=== PATIENT | male | born 1950 | race Caucasian/White ===

== ENCOUNTER 2020-04-13 07:58 | Outpatient (CLI) | payer BC, SELFPAY ==
[2020-04-13 09:09] LABS: Basophils Absolute Auto 0.1 K/mm3 (0.0-0.1); Basophils Percent Auto 1.3 % (0.2-1.2); Eosinophils Absolute Auto 0.1 K/mm3 (0-0.3); Eosinophils Percent Auto 2.2 % (0-4.4); Hematocrit 44.5 % (42.0-52.0); Hemoglobin 16.1 g/dL (14.0-18.0); Immature Granulocyte Absolute 0.02 K/mm3 (0.00-0.031); Immature Granulocyte Percent A 0.4 % (0-0.5); Lymphocytes Absolute Auto 1.67 K/mm3 (0.9-3.2); Lymphocytes Percent Auto 30.5 % (18.3-44.2); Mean Corpuscular HGB Conc 36.2 g/dl (32-36); Mean Corpuscular Volume 91.2 fl (80-100); Mean Platelet Volume 10.6 fl (7.4-10.4); Monocytes Absolute Auto 0.6 K/mm3 (0.1-0.6); Monocytes Percent Auto 10.8 % (2.6-8.5); Neutrophils Percent Auto 54.8 % (45.5-73.1); Platelet Count Result 153 k/mm3 (150-375); Red Blood Count 4.88 M/mm3 (4.6-6.20); Red Cell Distribution Width 12.5 % (11.5-14.5); White Blood Count 5.5 K/mm3 (4.5-10.0)
[2020-04-13 09:17] LABS: Urine Cotinine NEGATIVE
[2020-04-13 09:18] LABS: Hemoglobin A1C 5.3 % (<5.7)
[2020-04-13 09:19] LABS: Albumin Level 4.6 g/dL (3.5-5.1); Estimated Glomerular Filt Rate 60; Glucose 96 mg/dL (75-110)
== END 2020-04-13 07:59 | disposition home or self-care (01) ==
LOC: ANHSURGERY 08:00
PROVIDERS: PCP Internal Medicine; Visit Provider Orthopaedic Surgery
DX: M15.9 Polyosteoarthritis, unspecified (principal)
CPT/HCPCS: 36415; 80307; 82040; 82565; 82947; 83036; 85025; 87081

== ENCOUNTER 2020-05-02 01:18 | Outpatient (CLI) | payer BC, SELFPAY ==
[2020-05-02 18:09] LABS: SARS-CoV-2 RNA PCR Negative
== END 2020-05-02 01:19 | disposition home or self-care (01) ==
LOC: ANHCOVIDDT 01:18
PROVIDERS: PCP Internal Medicine; Visit Provider Orthopaedic Surgery
DX: Z01.818 Encounter for other preprocedural examination (principal); Z11.59 Encounter for screening for other viral diseases
CPT/HCPCS: 87635; C9803; U0003

== ENCOUNTER 2020-05-05 11:18 | Inpatient (IN) | payer BC, MEDICARE, SELFPAY ==
[2020-04-13 08:19] VITALS: BP 138/82; PULSE 76; RESP 20; TEMP 37.2; O2SAT 98; BMI 34.9
[2020-05-05] VITALS (11 sets, daily range): BP systolic 99–137; BP diastolic 42–104; PULSE 12–79; RESP 12–99; TEMP 36.3–36.8; O2SAT 74–100; BMI 35.2
--- NOTE | ~2020-05-05 | XR_ITS ---
EXAMINATION: XR knee LT 2V DATE: 05/05/2020 10:44 CDT INDICATION: Left total knee arthroplasty TECHNIQUE: 2 views left knee FINDINGS: There is a left total knee arthroplasty in expected position. Subcutaneous gas with fluid and air in the joint are consistent with recent surgery. No evidence of periprosthetic fracture. IMPRESSION: 1. Recent left total knee arthroplasty. Reviewed, dictated and finalized at location B.
[2020-05-05] MEDS: ACETAMINOPHEN 500 MG TABLET 1000 MG PO (07:06)
[2020-05-05] MEDS: LACTATED RINGERS 1,000 ML 30 ML IV CONT ×2 (07:14→10:25)
--- NOTE | 2020-05-05 07:23 | WPDANESEPPF ---
Anes - Initial Pre Proc Eval Procedure: Operation Date: 05/05/20 08:30 Proposed Procedures p Left Total Knee Arthroplasty - Sina Guerra MD Date/Time: 05/05/20 07:23 Surgeon: Sina Guerra MD Pre Op Diagnosis: LEFT KNEE OA Patient Data Age: 70 Gender: M Height: 5 ft 6 in Weight: 99.1 kg Last Vital Signs Temp 37.2 C 04/13/20 08:19 Pulse 76 04/13/20 08:19 Resp 20 04/13/20 08:19 BP 138/82 04/13/20 08:19 Pulse Ox 98 04/13/20 08:19 Allergies Allergy/AdvReac Type Severity Reaction Status Date / Time No Known Allergies Allergy Unverified 05/05/20 06:40 Home Medications Medication Instructions Recorded Confirmed Type Xarelto 20 mg PO DAILY 09/25/19 05/05/20 History mecobalamin (vitamin B12) 1,000 mcg SUBLINGUAL DAILY 09/25/19 05/05/20 History folic acid 1 mg tablet 1 mg PO DAILY #90 tablet 10/21/19 05/05/20 Rx amlodipine 10 mg tablet 10 mg PO DAILY #90 tablet 11/18/19 05/05/20 Rx diphenhydramine-acetaminophen 2 tablet PO HS PRN 04/13/20 04/13/20 History [Tylenol PM Extra Strength] meloxicam [Mobic] 7.5 mg PO DAILY 04/13/20 05/05/20 History Patient hx anesthesia problems: none Family hx anesthesia problems: none PMFSH Past Medical History Medical History (Updated 04/13/20 @ 10:23 by Sina Guerra MD) A-fib Aftercare following surgery (10/29/19) Anticoagulant long-term use Atrial fibrillation stopped on 10/25 Benign essential hypertension BMI 34.0-34.9,adult Cataracts, bilateral DJD (degenerative joint disease), multiple sites Elevated homocysteine Encounter for preventive health examination Encounter for special screening examination for neoplasm of prostate Hearing loss Hypertension Impingement syndrome of right shoulder Insomnia On assistant terminal manager drug therapy Osteoarthritis of left knee Surgical History Surgical History History of total right knee replacement Presence of right artificial knee joint (10/29/19) Family History Family History Mother Family history of malignant neoplasm Hypertension Family history of lymphoma Father Family history of congestive heart failure Hypertension Family history of cardiovascular disease Family history of heart disease in male family member before age 55 Social History Social History Smoking status: Never smoker Alcohol intake: current Gender identity (if verbalized by the patient): Male Anes - Eval Final PreProcedure Day of Procedure 05/05/20 07:23 Patient weight: obese Heart: irregular rhythm Lungs: clear to auscultation Airway: Mallampati scale class II Neurological: alert and oriented Last oral intake: >/= 8 hours ASA classification: III Emergent: no Anesthetic plan: proceed Anesthesia type and monitoring: general LMA and standard monitoring Informed Consent: The patient's anesthetic plan and its attendant risks and benefits were discussed with the patient/family/POA. Questions were solicited and answers provided to the satisfaction of the patient/family/POA.
[2020-05-05] MEDS: KETOROLAC 15 MG/ML VIAL (*BKC) IV PUSH (07:35)
--- NOTE | 2020-05-05 07:45 | WPDHPUPDATE1 ---
History and Physical Update Update Date/Time: 05/05/20 07:45 History and Physical has been reviewed, including an updated exam of the patient. There are NO changes in the patient's condition. Risks, benefits, and alternatives have been discussed and questions answered. Patient agrees to proceed with procedure.
[2020-05-05] MEDS: TRANEXAMIC ACID 1,000MG/ISO100 1,000 MG/100 ML BAG 200 MG IVPB (07:51)
[2020-05-05] MEDS: ceFAZolin 2 GM/D5W 50 ML 2 GM/50 ML BAG IVPB (08:29)
--- NOTE | 2020-05-05 08:30 | WPDANESPNB ---
Anes - Peripheral Nerve Block Date/Time: 05/05/20 08:30 I have discussed with the patient/family/POA the placement of a peripheral nerve block for post-operative pain management, including associated risks, benefits, complications, and side effects. Alternative methods of post-operative analgesia were detailed. Questions were solicited and answers provided to the satisfaction of the patient/family/POA. Time-Out: A pre-procedural Time-Out was completed immediately before starting the procedure and confirmed: Patient Identification, Site, Procedure, Patient Position and the Availability of Requisite Equipment. Clinical Indications: Acute post-operative pain management requested by the operative surgeon. Nerve Block Insertion Note Anes-nerve block: adductor canal left Patient position: supine Needle: 22 gauge, stimulating, insulated echogenic needle. Needle length: 80 mm Technique: ultrasound Injectate: bupivacaine 0.5% with epi 5 mcg/ml (30) and dexamethasone (mg) (8) Observations: tolerated well Complications: none Procedure start time:: 719 Procedure end time:: 727
[2020-05-05] MEDS: GENTAMICIN BONE CEMENT REFOBACIN 1 EACH TOPICAL (08:55)
--- NOTE | 2020-05-05 10:20 | PM.PROC ---
Procedure Note - Detailed Date of procedure: 05/05/20 Pre-op diagnosis: LEFT KNEE OA Post-op diagnosis: same Procedure performed: Total knee arthroplasty, left Implants: [place] [employer] size 5 PS press-fit femur, size 5 cemented low-profile tibia, 16mm polyethylene insert, 38 mm asymmetric metal backed patellar component. Anesthesia: GETA and regional (subsartorial nerve block) Surgeon: Sina Guerra MD Estimated blood loss (mL): 200 Tourniquet time (min): 17 Drains: No Complications: None Condition: stable Disposition: PACU Findings: OPERATIVE DETAILS: The patient was given a nerve block preoperatively, and then brought to the operating room. A general anesthetic was administered. The leg was prepped and draped in the usual sterile fashion. The limb was elevated and the tourniquet inflated to 300 mmHg during initial exposure,and cementation. A longitudinal incision was created along the medial border of the patella and patellar tendon, and a minimally invasive optimized mid-vastus approach to the knee was performed. A large medial release was taken. The knee was then flexed. The osteophytes were carefully removed. The intramedullary guide was placed in the femoral canal. The distal femoral resection was then taken with the oscillating saw. The collateral ligaments were carefully protected. The tibia was carefully exposed. The jig was applied, and the proximal tibia was resected according to preoperative plan. The knee was balanced in extension. Appropriate releases were taken where needed. The anterior and posterior cruciate ligaments and meniscal remnants were removed. The patella was measured. Patellar resection was carried out with the oscillating saw. The lug holes drilled. The femur was sized and rotation assessed using a combination of gap balancing, posterior referencing, and the AP axis. The 4 in 1 cutting block was used to finish the femoral cuts after equal gaps were assured. The femur was downsized 1.5 mm. The box cut was taken. The lug holes were drilled. The osteophytes were carefully removed from the back of the knee. The knee was copiously irrigated with antibiotic solution periodically throughout the procedure. The meniscal remnants were removed. The spacer block was used to confirm equal flexion and extension gaps. Further releases were performed as needed. The medial bone was resected and a needle release was performed. The tibia was sized and broached. The bony surfaces were prepared for cementing with pulsatile lavage. The real tibial component was cemented into position followed by press fitting the femoral component. Excess cement was carefully removed. The patella component was press-fit. Patellar tracking was carefully assessed. No additional releases were required. The wound was closed with #1 Vycril suture, #2 Quill suture, 0-Quill suture, and 2-0 Quill suture followed by Steri-Strips. A sterile bulky dressing was applied. Meticulous hemostasis was maintained throughout the procedure. There were no complications. The patient was extubated and brought to the recovery room in stable condition after the application of sterile dressing with Steve bandage.
--- NOTE | 2020-05-05 11:25 | ADMGEN ---
This patient, Raghu Paige, was admitted to 2 Medical Room 248-. Patient/family oriented to hospital policies and general routines including ID bracelet, bed and alarms, visiting hours, pain management, procedures, bathroom and other care routines, personal items, smoking policy, room service/diet, and visiting hours. Valuables list has been completed. Information on how to activate the Rapid Response Team has been discussed. Patient/Family are encouraged to report perceived risks to care and to ask questions if they do not understand what they are told or what they should do.
[2020-05-05] MEDS: SODIUM CHLORIDE 0.9% IV 1,000 ML 125 ML IV CONT (11:53)
[2020-05-05] MEDS: ASPIRIN 81 MG ENTERIC TABLET PO (17:04)
[2020-05-05] MEDS: DOCUSATE SODIUM 100 MG CAPSULE PO (17:04)
[2020-05-05] MEDS: MELOXICAM 7.5 MG TABLET PO (17:04)
[2020-05-05] MEDS: FAMOTIDINE 20 MG TABLET PO (21:29)
[2020-05-06 01:03] VITALS: BP 122/77; PULSE 64; RESP 18; TEMP 36.6; O2SAT 98
[2020-05-06 05:03] VITALS: BP 120/73; PULSE 60; RESP 18; TEMP 36.4; O2SAT 96
[2020-05-06 05:47] LABS: Basophils Percent Auto 0.1 % (0.2-1.2); Hematocrit 36.8 % (42.0-52.0); Immature Granulocyte Absolute 0.06 K/mm3 (0.00-0.031); Immature Granulocyte Percent A 0.4 % (0-0.5); Immature Platelet Fraction Pct 5.9 % (0.9-11.2); Lymphocytes Absolute Auto 0.84 K/mm3 (0.9-3.2); Lymphocytes Percent Auto 5.8 % (18.3-44.2); Mean Corpuscular HGB Conc 35.3 g/dl (32-36); Mean Corpuscular Hemoglobin 32.3 pg (26-34); Mean Corpuscular Volume 91.3 fl (80-100); Mean Platelet Volume 10.9 fl (7.4-10.4); Monocytes Absolute Auto 0.9 K/mm3 (0.1-0.6); Monocytes Percent Auto 6.5 % (2.6-8.5); Neutrophils Absolute Auto 12.7 K/mm3 (1.3-6.7); Neutrophils Percent Auto 87.2 % (45.5-73.1); Platelet Count Result 142 k/mm3 (150-375); Red Blood Count 4.03 M/mm3 (4.6-6.20); Red Cell Distribution Width 11.6 % (11.5-14.5); White Blood Count 14.6 K/mm3 (4.5-10.0)
[2020-05-06 06:07] LABS: Blood Urea Nitrogen 20 mg/dL (9-20); Calcium 8.4 mg/dL (8.4-10.2); Carbon Dioxide 23 mmol/L (22-30); Chloride 103 mmol/L (98-107); Estimated CRCL calculation 62 ml/min; Estimated Glomerular Filt Rate > 60; Glucose 146 mg/dL (75-110); Potassium 4.2 mmol/L (3.4-5.0); Sodium 134 mmol/L (137-145)
--- NOTE | 2020-05-06 07:50 | WPDANESPN ---
Anes - Prog Note Post-Op Date/Time: 05/06/20 07:50 Cardiovascular status: normal Respiratory status: normal Airway patency: baseline Mental status: baseline Post-Op hydration status: normal Vital Signs: Last Vital Signs Temp 36.4 C L 05/06/20 05:03 Pulse 60 05/06/20 05:03 Resp 18 05/06/20 05:03 BP 120/73 05/06/20 05:03 Pulse Ox 96 05/06/20 05:03 I/O: Intake & Output 05/05/20 05/05/20 05/06/20 15:59 23:59 07:59 Intake Total 640 2070 450 Output Total 700 1700 Balance 640 1370 -1250 Laboratory Tests 05/06/20 05:16 05/06/20 05:16 05/05/20 05/06/20 05/06/20 07:12 05:16 05:16 WBC 14.6 H RBC 4.03 L Hgb 13.0 L D Hct 36.8 L MCV 91.3 MCH 32.3 MCHC 35.3 RDW 11.6 Plt Count 142 L MPV 10.9 H Immature Gran % (Auto) 0.4 Neut % (Auto) 87.2 H Lymph % (Auto) 5.8 L [place] % (Auto) 6.5 Eos % (Auto) 0.0 Baso % (Auto) 0.1 L Lymph # (Auto) 0.84 L [place] # (Auto) 0.9 H Eos # (Auto) 0.0 Baso # (Auto) 0.0 Abs Immat Gran (auto) 0.06 H Absolute Neuts (auto) 12.7 H Absolute Nucleated RBC 0.0 Nucleated RBC % 0.0 % Immature Plt Fraction 5.9 Sodium 134 L Potassium 4.2 Chloride 103 Carbon Dioxide 23 BUN 20 Creatinine 1.10 Estim Creat Clear Calc 62 Estimated GFR > 60 Glucose 146 H Calcium 8.4 Blood Type O Positive Antibody Screen Negative Post-procedural complaints: none Patient Feedback: Patient satisfied with anesthetic care.
[2020-05-06] MEDS: amLODIPine BESYLATE 5 MG TABLET 10 MG PO (09:44)
[2020-05-06] MEDS: ONDANSETRON INJ 4 MG/2 ML VIAL IV PUSH (09:45)
[2020-05-06] MEDS: MELOXICAM 7.5 MG TABLET PO (09:45)
[2020-05-06] MEDS: FAMOTIDINE 20 MG TABLET PO (09:45)
[2020-05-06] MEDS: FOLIC ACID 1 MG TABLET PO (09:45)
[2020-05-06] MEDS: ASPIRIN 81 MG ENTERIC TABLET PO (09:45)
[2020-05-06] MEDS: CYANOCOBALAMIN 1,000 MCG TABLET 1000 MCG PO (09:45)
[2020-05-06] MEDS: DOCUSATE SODIUM 100 MG CAPSULE PO (09:45)
[2020-05-06 10:00] VITALS: BP 104/68; PULSE 71; RESP 16; TEMP 36.3; O2SAT 97
[2020-05-06 10:16] VITALS: O2SAT 96
--- NOTE | 2020-05-06 10:23 | PM.DS ---
DS: Admitting Diagnosis Admitting Diagnosis Admitting Diagnosis: Polyosteoarthritis, unspecified DS: Discharge Diagnosis Discharge Diagnosis (1) Status post total knee replacement, left: Code(s): Z96.652 - Presence of left artificial knee joint Status: Acute DS: Summary Hospital Course Reason for hospitalization: Total knee arthroplasty. Hospital Course: Tolerated surgery well. Progressed appropriately with therapy. Status at Discharge Functional status at discharge: uses cane/walker Time Spent with Patient Time attestation: Total time spent providing and/or coordinating discharge services: Exam Const: General: no acute distress Resp: Effort & Inspection: normal respiratory effort Skin: Other: Wound healing well. Mepilex dressing intact. No hematoma or drainage. Neuro: Motor exam (neuro): 5/5 motor strength present throughout Sensory Exam: normal sensation Psych: Mental Status: mental status grossly normal Speech and movement: Normal speech and movement present DS: Data Data Completed and Pending Labs on day of discharge: Labs from last 24 hours 05/06/20 05/06/20 05:16 05:16 WBC 14.6 H RBC 4.03 L Hgb 13.0 L D Hct 36.8 L MCV 91.3 MCH 32.3 MCHC 35.3 RDW 11.6 Plt Count 142 L MPV 10.9 H Immature Gran % (Auto) 0.4 Neut % (Auto) 87.2 H Lymph % (Auto) 5.8 L [place] % (Auto) 6.5 Eos % (Auto) 0.0 Baso % (Auto) 0.1 L Lymph # (Auto) 0.84 L [place] # (Auto) 0.9 H Eos # (Auto) 0.0 Baso # (Auto) 0.0 Abs Immat Gran (auto) 0.06 H Absolute Neuts (auto) 12.7 H Absolute Nucleated RBC 0.0 Nucleated RBC % 0.0 % Immature Plt Fraction 5.9 Sodium 134 L Potassium 4.2 Chloride 103 Carbon Dioxide 23 BUN 20 Creatinine 1.10 Estim Creat Clear Calc 62 Estimated GFR > 60 Glucose 146 H Calcium 8.4 Discharge Plan Discharge Attending physician on discharge: Sina Guerra Discharging Clinician: Sina Guerra Patient Disposition: Home, Self-Care Activity: may shower Diet: regular Discharge Instructions: See instruction sheet. Patient Instructions: Rivaroxaban (By mouth) Follow-up/Referrals: Sina Guerra MD [Physician] - Discharge Medications: New oxycodone-acetaminophen 5-325 mg tablet 1 - 2 tablet PO Q4-6H MDD 8 tablets PRN (Reason: pain) Qty: 40 RF: 0 aspirin 81 mg Tablet,Delayed Release (Dr/Ec) 81 mg PO BID 14 Days Qty: 28 RF: 0 Continued mecobalamin (vitamin B12) 1,000 mcg Tablet,Disintegrating 1,000 mcg SUBLINGUAL DAILY RF: 0 diphenhydramine-acetaminophen [Tylenol PM Extra Strength] 25-500 mg Tablet 2 tablet PO HS PRN (Reason: Sleep) RF: 0 meloxicam [Mobic] 7.5 mg tablet 7.5 mg PO DAILY RF: 0 folic acid 1 mg tablet 1 mg PO DAILY Qty: 90 RF: 3 amlodipine 10 mg tablet 10 mg PO DAILY Qty: 90 RF: 4 Held Xarelto 20 mg Tablet 20 mg PO DAILY RF: 0 Hold Instructions: Resume on 11/12/19. Date of admission: 05/05/20 11:18 Primary Care Provider: Reece Gama Admitting Provider: Sina Guerra Attending physician on admission: Sian Guerra Quality VTE Prophylaxis VTE prophylaxis: mechanical ordered (NEYDA velez and Myla)
== END 2020-05-06 13:10 | disposition home or self-care (01) | DRG 470 ==
LOC: ANH2MED 19:40
PROVIDERS: Admitting Provider Orthopaedic Surgery; PCP Internal Medicine; Visit Provider Orthopaedic Surgery
PROC: 0SRD0J9 Replacement of Left Knee Joint with Synthetic Substitute, Cemented, Open Approach (ICD-10-PCS; CPT 27447; principal; 2020-05-05 08:30)
DX: M17.12 Unilateral primary osteoarthritis, left knee (principal); I48.20 Chronic atrial fibrillation, unspecified; I10 Essential (primary) hypertension; Z96.651 Presence of right artificial knee joint; E66.9 Obesity, unspecified; Z68.35 Body mass index [BMI] 35.0-35.9, adult; Z79.01 Long term (current) use of anticoagulants
CPT/HCPCS: 36415; 73560; 80048; 85025; 85055; 86850; 86900; 86901; 97110; 97116; 97161; 97165; A9270; C1713; C1776; J0131; J0171; J0690; J1100; J1885; J2250; J2270; J2405; J2704; J2795; J3010; J7030; J7120

== ENCOUNTER 2020-09-28 12:26 | Outpatient (CLI) | payer BC, SELFPAY ==
--- NOTE | ~2020-09-28 | US_ITS ---
EXAMINATION: US renal BI DATE: 09/28/2020 12:57 INDICATION: Abnormal kidney function. TECHNIQUE: Multiple ultrasound grayscale images of the kidneys were obtained. COMPARISON: CT abdomen and pelvis 08/08/2013 FINDINGS: The right kidney measures 9.7 x 5.7 x 5.7 cm. The left kidney measures 9.5 x 4.9 x 4.6 cm. The kidney s demonstrate normal parenchymal echogenicity. There are cysts in right kidney measuring up to 3.1 cm . There is no hydronephrosis. The bladder is normal. There is a 4.7 cm fusiform infrarenal aortic ane urysm. IMPRESSION: 1. Normal kidney sizes. No hydronephrosis. 2. 4.7 cm fusiform infrarenal aortic aneurysm. Reviewed, dictated and finalized at location B. SAFETY REPRESENTATIVE
== END 2020-09-28 12:27 | disposition home or self-care (01) ==
PROVIDERS: PCP Internal Medicine; Visit Provider Internal Medicine
DX: I71.4 Abdominal aortic aneurysm, without rupture (principal); N28.1 Cyst of kidney, acquired; R79.89 Other specified abnormal findings of blood chemistry
CPT/HCPCS: 76775

== ENCOUNTER 2022-05-31 11:38 | Outpatient (CLI) | payer MEDICARE, SELFPAY ==
--- NOTE | ~2022-05-31 | XR_ITS ---
XR_[id number]_CR DATE: 05/31/2022 12:15 INDICATION: First metatarsophalangeal pain. Gout. TECHNIQUE: Weightbearing 4 view examination COMPARISON: None FINDINGS: There is mild osteoarthritis at the first metatarsophalangeal joint. No fracture or dislocation, periosteal reaction or bone destruction is detected. IMPRESSION: Mild osteoarthritis at the first metatarsophalangeal joint Reviewed, dictated and finalized at Location A. Reviewed, dictated and finalized at location B.
[2022-05-31 12:07] LABS: CRP 0.8 mg/dL (<1.0); Uric Acid 6.8 mg/dL (3.5-8.5)
[2022-05-31 12:23] LABS: Erythrocyte Sedimentation Rate 13 mm/hr (0-20)
== END 2022-05-31 11:39 | disposition home or self-care (01) ==
PROVIDERS: PCP Internal Medicine; Visit Provider Internal Medicine
DX: M10.9 Gout, unspecified (principal)
CPT/HCPCS: 36415; 73630; 84550; 85652; 86140

== ENCOUNTER 2022-08-29 09:34 | Outpatient (CLI) | payer MEDICARE, SELFPAY ==
--- NOTE | ~2022-08-29 | XR_ITS ---
EXAM: XR foot RT min 3V DATE: 08/29/2022 10:05 HISTORY: M79.671 - Pain in right foot. Pain on and off for 4 weeks. . COMPARISON: None available. FINDINGS: Decreased mineralization. No fracture or dislocation. No lytic or blastic lesion. Degenera tive change at the first MTP and first interphalangeal joint, tibiotalar joint, and multiple midfoot joints. Minimal plantar and calcaneal enthesopathy. No erosion or periosteal change. Soft tissues wit hin normal limits. Small ankle joint effusion. IMPRESSION: No acute osseous finding the right foot. Chronic and degenerative changes detailed above. Reviewed, dictated and finalized at location K. T OFFICE SECRETARY IMPRESSION: No acute osseous finding the right foot. Chronic and degenerative c hanges detailed above.
== END 2022-08-29 09:35 | disposition home or self-care (01) ==
PROVIDERS: PCP Internal Medicine; Visit Provider Internal Medicine
DX: M79.671 Pain in right foot (principal)
CPT/HCPCS: 73630

== ENCOUNTER 2022-08-31 09:21 | Outpatient (CLI) | payer MEDICARE, SELFPAY ==
[2022-08-31 09:47] LABS: Basophils Absolute Auto 0.1 K/mm3 (0.0-0.1); Basophils Percent Auto 0.4 % (0.2-1.2); Eosinophils Absolute Auto 0.1 K/mm3 (0-0.3); Eosinophils Percent Auto 0.8 % (0-4.4); Hemoglobin 15.5 g/dL (14.0-18.0); Immature Granulocyte Absolute 0.07 K/mm3 (0.00-0.031); Immature Granulocyte Percent A 0.6 % (0-0.5); Lymphocytes Absolute Auto 1.31 K/mm3 (0.9-3.2); Lymphocytes Percent Auto 11.5 % (18.3-44.2); Mean Corpuscular HGB Conc 35.2 g/dl (32-36); Mean Corpuscular Hemoglobin 33.5 pg (26-34); Mean Corpuscular Volume 95.2 fl (80-100); Mean Platelet Volume 9.8 fl (7.4-10.4); Monocytes Percent Auto 8.4 % (2.6-8.5); Neutrophils Absolute Auto 8.9 K/mm3 (1.3-6.7); Neutrophils Percent Auto 78.3 % (45.5-73.1); Nucleated Red Blood Cells Perc 0.4 % (0.0-0.2); Platelet Count Result 200 k/mm3 (150-375); Red Blood Count 4.62 M/mm3 (4.6-6.20); Red Cell Distribution Width 11.6 % (11.5-14.5); White Blood Count 11.4 K/mm3 (4.5-10.0)
[2022-08-31 11:15] LABS: Erythrocyte Sedimentation Rate 32 mm/hr (0-20)
== END 2022-08-31 09:22 | disposition home or self-care (01) ==
PROVIDERS: PCP Internal Medicine; Visit Provider Internal Medicine
DX: R60.9 Edema, unspecified (principal); M79.672 Pain in left foot; M79.671 Pain in right foot; Z79.899 Other long term (current) drug therapy
CPT/HCPCS: 36415; 85025; 85652; 86140

== ENCOUNTER 2023-12-06 00:08 | Day surgery (SDC) | payer MEDICARE, SELFPAY ==
[2023-11-16 15:01] VITALS: BMI 31.4
--- NOTE | 2023-11-16 15:20 | PC.NURSE ---
11/16/23 1510: PT MADE AWARE LAST DOSE OF XARELTO IS TO BE 12/03/23 FOR PROCEDURE DATE 12/06/23. PT STATES UNDERSTANDING.
--- NOTE | 2023-12-04 10:47 | SUR.PREOP ---
Patient called regarding upcoming procedure. Reviewed preop instructions, appointment times, and procedure prep.
[2023-12-06 06:23] VITALS: BP 147/89; PULSE 74; RESP 18; TEMP 36.1; O2SAT 100
[2023-12-06] MEDS: LACTATED RINGERS 1,000 ML 150 ML IV CONT (06:38)
--- NOTE | 2023-12-06 07:21 | WPDANESEPPF ---
Anes - Initial Pre Proc Eval Procedure: Operation Date: 12/06/23 07:30 Proposed Procedures p Colonoscopy - Sorin Paulino MD Date/Time: 12/06/23 07:21 Surgeon: Sorin Paulino MD Pre Op Diagnosis: hx of colon polyps Patient Data Age: 73 Gender: M Height: 1.7 m Weight: 93 kg Last Vital Signs Temp 97 F L 12/06/23 06:23 Pulse 74 12/06/23 06:23 Resp 18 12/06/23 06:23 BP 147/89 H 12/06/23 06:23 Pulse Ox 100 12/06/23 06:23 O2 Del Method Room Air 12/06/23 06:23 Allergies Allergy/AdvReac Type Severity Reaction Status Date / Time No Known Allergies Allergy Verified 12/06/23 06:22 Home Medications Medication Instructions Recorded Confirmed Type mecobalamin (vitamin B12) 1,000 1,000 mcg PO DAILY 09/25/19 11/16/23 History mcg disintegrating tablet,sublingual rivaroxaban 20 mg tablet (Xarelto) See Rx Instructions .Route 11/05/20 12/06/23 Rx .COMPLEX #90 tabs diphenhydramine 25 1 tablet PO HS PRN Sleep 01/04/21 11/16/23 History mg-acetaminophen 500 mg tablet (Tylenol PM Extra Strength) folic acid 800 mcg tablet 800 mcg PO DAILY 01/19/21 11/16/23 History [id number] acid-vit 1 tablet PO DAILY 05/14/21 11/16/23 History K-lycop 400 mcg-20 mcg-370 mcg tablet (Men's 50 Plus Multivitamin) cholecalciferol (vitamin D3) 25 50 mcg PO DAILY 04/20/23 11/16/23 History mcg (1,000 unit) capsule amlodipine 10 mg tablet See Rx Instructions .Route 10/03/23 11/16/23 Rx .COMPLEX #90 tabs Patient hx anesthesia problems: none Family hx anesthesia problems: none Results Review: All pre-operative results and documents have been reviewed as part of the pre-operative evaluation. [facility] Past Medical History Medical History (Updated 10/03/23 @ 07:19 by Reva Gunderson [facility]) A-fib AAA (abdominal aortic aneurysm) Abscess of left axilla Anticoagulant long-term use Atrial fibrillation stopped on 10/25 Benign essential hypertension BMI 29.0-29.9,adult BMI 31.0-31.9,adult BMI 32.0-32.9,adult BMI 33.0-33.9,adult BMI 34.0-34.9,adult BMI 35.0-35.9,adult BMI 36.0-36.9,adult Bronchitis Cataracts, bilateral Change in mole CKD (chronic kidney disease) DJD (degenerative joint disease), multiple sites Elevated homocysteine Elevated serum creatinine Elevated serum creatinine Encounter for Medicare annual wellness exam Encounter for preventive health examination Encounter for routine adult health examination with abnormal findings Encounter for routine adult health examination without abnormal findings Family history of diabetes mellitus Gout Hearing loss History of colon polyps Hypertension Impacted cerumen Impingement syndrome of left shoulder Impingement syndrome of right shoulder Impingement syndrome of right shoulder Insomnia exterminator current use of therapeutic drug Low vitamin D level On fpc drug therapy LUIS E (obstructive sleep apnea) Osteoarthritis of left knee Prostate cancer screening Skin nodule Vision changes Vitamin B12 deficiency Surgical History Surgical History History of total bilateral knee replacement History of total right knee replacement Presence of right artificial knee joint (10/29/19) Status post total knee replacement, left Family History Family History Mother Family history of malignant neoplasm Hypertension Family history of lymphoma Father Family history of congestive heart failure Hypertension Family history of cardiovascular disease Family history of heart disease in male family member before age 55 Social History Social History Smoking status: Never smoker Alcohol intake: never Substance use: never Substance use type: does not use Lack of Food: Never True Current Housing: I Have Housing Concerned About Amita
--- NOTE | 2023-12-06 07:24 | PM.HPGS ---
History of Present Illness History of Present Illness Consent: Risks, benefits, and alternatives have been discussed and questions answered. Patient agrees to proceed with procedure. Chief complaint: hx of colon polyps Narrative: Rgahu Paige is a 73 year old male with history of colon polyps, last colonoscopy 5 years ago Review of Systems Constitutional: Constitutional: Denies headache(s) and Denies weakness Eyes: Eyes: Denies blurry vision ENT: Reports Normal hearing present, Denies headache(s) and Denies neck pain Cardiovascular: Cardiovascular: Denies chest pain and Denies dyspnea Respiratory: Respiratory: Denies dyspnea Gastrointestinal: Gastrointestinal: Reports no additional gastrointestinal complaints Genitourinary: Genitourinary: Denies dysuria Musculoskeletal: Musculoskeletal: Denies neck pain Integumentary/Breasts: Skin/Breast: Denies dry skin Neurologic: Reports Normal hearing present, Denies headache(s) and Denies weakness Psychiatric: Psychiatric: Denies anxiety Endocrine: Endocrine: Denies change in body appearance Hematologic/Lymphatic: Hematologic/Lymphatic: Denies easy bleeding Allergic/Immunologic: Allergic/Immunologic: Denies urticaria PMFSH Past Medical History Medical History (Updated 10/03/23 @ 07:19 by Reva Gunderson, [facility]) A-fib AAA (abdominal aortic aneurysm) Abscess of left axilla Anticoagulant long-term use Atrial fibrillation stopped on 10/25 Benign essential hypertension BMI 29.0-29.9,adult BMI 31.0-31.9,adult BMI 32.0-32.9,adult BMI 33.0-33.9,adult BMI 34.0-34.9,adult BMI 35.0-35.9,adult BMI 36.0-36.9,adult Bronchitis Cataracts, bilateral Change in mole CKD (chronic kidney disease) DJD (degenerative joint disease), multiple sites Elevated homocysteine Elevated serum creatinine Elevated serum creatinine Encounter for Medicare annual wellness exam Encounter for preventive health examination Encounter for routine adult health examination with abnormal findings Encounter for routine adult health examination without abnormal findings Family history of diabetes mellitus Gout Hearing loss History of colon polyps Hypertension Impacted cerumen Impingement syndrome of left shoulder Impingement syndrome of right shoulder Impingement syndrome of right shoulder Insomnia 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 Low vitamin D level On long distance billing operator drug therapy LUIS E (obstructive sleep apnea) Osteoarthritis of left knee Prostate cancer screening Skin nodule Vision changes Vitamin B12 deficiency Surgical History Surgical History History of total bilateral knee replacement History of total right knee replacement Presence of right artificial knee joint (10/29/19) Status post total knee replacement, left Family History Family History Mother Family history of malignant neoplasm Hypertension Family history of lymphoma Father Family history of congestive heart failure Hypertension Family history of cardiovascular disease Family history of heart disease in male family member before age 55 Social History Social History Smoking status: Never smoker Alcohol intake: never Substance use: never Substance use type: does not use Lack of Food: Never True Current Housing: I Have Housing Concerned About Future Housing: No Difficulty Paying Gas/Electric Bills: No Difficulty Paying for Meds: No Currently Unemployed: No Education: Master's Degree or Higher Difficulty w/ Childcare or Family Care: No Living arrangements: alone Occupation/Education: retired Gender identity (if verbalized by the patient): Male Spiritual care concerns: No Meds Home Medications and Allergies Home Medications Medication Instructions Recorded Confirmed Type mecobalamin (vitamin B12) 1,000
--- NOTE | 2023-12-06 07:45 | SUR.OPER ---
Unable to retrieve one transverse polyp (biopsy forcep). Dr. mijares.
--- NOTE | 2023-12-06 07:53 | SUR.OPER ---
All polyps placed in Transverse Colon specimen container. Dr. George mijares.
[2023-12-06 07:54] VITALS: BP 107/68; PULSE 65; RESP 19; O2SAT 100
[2023-12-06 08:04] VITALS: BP 100/66; PULSE 66; RESP 19; O2SAT 100
== END 2023-12-06 08:18 | disposition home or self-care (01) ==
PROVIDERS: PCP Internal Medicine; Visit Provider Internal Medicine Gastroenterology
PROC: 0DJD8ZZ Inspection of Lower Intestinal Tract, Via Natural or Artificial Opening Endoscopic (ICD-10-PCS; CPT 45378; principal; 2023-12-06 07:30)
DX: Z12.11 Encounter for screening for malignant neoplasm of colon (principal); K63.5 Polyp of colon; D12.3 Benign neoplasm of transverse colon; D17.5 Benign lipomatous neoplasm of intra-abdominal organs; K57.30 Diverticulosis of large intestine without perforation or abscess without bleeding; K64.8 Other hemorrhoids; I48.91 Unspecified atrial fibrillation; I71.40 Abdominal aortic aneurysm, without rupture, unspecified; I12.9 Hypertensive chronic kidney disease with stage 1 through stage 4 chronic kidney disease, or unspecified chronic kidney disease; N18.9 Chronic kidney disease, unspecified; M10.9 Gout, unspecified; G47.33 Obstructive sleep apnea (adult) (pediatric); E55.9 Vitamin D deficiency, unspecified; E53.8 Deficiency of other specified B group vitamins; E66.9 Obesity, unspecified; Z68.32 Body mass index [BMI] 32.0-32.9, adult; Z79.01 Long term (current) use of anticoagulants
CPT/HCPCS: 45380; 88305; J7120